=== PATIENT | male | born 1930 | race Caucasian/White ===

== ENCOUNTER → 2016-09-24 | Day surgery (SDC) | payer MEDICARE, OTHER ==
[~2016-09-24] VITALS: Ht 170.2 cm; Wt 59.0 kg
[~2016-09-24] MED LIST: ACET65TA OR; AMBI10TA PO; AMBI5TAB PO; BALANCED SALT IRRIGATION SOLUTION 500ML BAG (FOR OR EYE MACHINE) As Ordered ONE; COMB0.2S OU; COUM2.5T17 PO; CYCLOPENTOLATE 2% OPHTH SOLN 2ML BTL As Ordered ONE; CYCLOPENTOLATE 2% OPHTH SOLN 2ML BTL OD ONE; DECLOMYCIN; DEME150T PO; DEME150T2 PO; DORZ2SOL5 OU; FERR325T PO; FLEEENE4 PR; HEALON DUET (HEALON 10MG/ML 0.55ML & HEALON ENDOCOAT 30MG/ML 0.85ML) As Ordered ONE; LASI20TA PO; LASI40TA PO; LEVO25TA2 PO; LEVO25TA5 PO; LIDOCAINE 2% W/EPIN INJ 20ML **PRES FREE As Ordered ONE; LIDOCAINE 4% INJ 5 ML AMP OU ONE; LR 500 ML IV ONE; MELOPOW PO; METATAB PO; MIDAZOLAM INJ 2 MG/2 ML VIAL (J2250) As Ordered ONE; MILKSUS PO; MIRA3350 PO; OFLOXACIN 0.3 % (OCUFLOX) OPTH SOL 5ML As Ordered ONE; OFLOXACIN 0.3 % (OCUFLOX) OPTH SOL 5ML OD ONE; OMEP10CASR PO; PERC5TAB12 PO; PHENYLEPHRINE 2.5% OPHTH SOL 2ML As Ordered ONE; PHENYLEPHRINE 2.5% OPHTH SOL 2ML OD ONE; POVIDONE-IODINE 5% OPHTH PREP SOL 30ML As Ordered ONE; PRIL40CA OR; SENO8.6T5 PO; TOBRADEX OPHTH OINT 3.5 GM As Ordered ONE; TOBROPO OU; TROPICAMIDE 1% OPHTH SOLN 2ML As Ordered ONE; TROPICAMIDE 1% OPHTH SOLN 2ML OD ONE; TYLE325T5 PO; XALATAN; XALATAN OPTH OU; ZOFR20TA PO; fentaNYL 100 MCG/2 ML INJECTION (J3010) As Ordered ONE; mitoMYcin 0.2 MG/VIAL KIT FOR OPHTHALMIC USE (J7315 PER 0.2MG) As Ordered ONE
[2016-09-24 16:00] VITALS: BP 145/69
--- NOTE | 2016-09-25 17:10 | RO ---
DATE OF PROCEDURE: 09/24/2016 PREPROCEDURE DIAGNOSIS: Glaucoma right eye. POSTPROCEDURE DIAGNOSIS: Glaucoma right eye. PROCEDURE: Endocyclophotocoagulation and EX-PRESS shunt placement in the right eye. Version P50. SURGEON: Dr. Alda Simpson LODGE SALES ASSOCIATE: None. ANESTHESIA: COMPLICATIONS: None. PROCEDURE IN DETAIL: The patient was brought to the operating room and laid in supine position. The eye was prepped and draped in a sterile fashion for ophthalmic surgery and a lid speculum was placed. Attention was first diverted to doing the ECP. Sideport incision was made and EndoCoat was injected into the anterior chamber. Temporal clear corneal incision was made with a 2.5 mm keratome and Healon was injected into the ciliary sulcus to visualize the ciliary processes on the video screen with the help of the EndoProbe. Endocyclophotocoagulation was carried out over 280 degrees at 0.25 mV with good results seen on the screen by shrinking of the ciliary processes. After this the excess viscoelastic was aspirated and the wound was closed using #10-0 nylon suture. Attention was then diverted towards doing the EX-PRESS shunt and subconjunctival injection of 2% lidocaine with 1:100,000 epinephrine was given in superotemporal subconjunctival space because of the severe adhesions throughout the rest of the conjunctiva. After this a limbal based conjunctival incision was then made from the fornix towards the limbus. Subconjunctival dissection was done along with hemostasis as necessary. Mitomycin 0.4 mg per mL diluted to 0.2 mg on the field was then placed under the conjunctiva for about 2 minutes followed by copious irrigation with balanced salt solution. Limbal-based scleral flap was created measuring 3.5 x 4 mm and was dissection was carried all the way to the blue line. The scleral flap was elevated and anterior chamber was entered with a 27-guage needle which was withdrawn and through the same needle the EX-PRESS shunt was placed and draped over by the scleral flap and conjunctiva closed using #8-0 continuous Vicryl suture. No leaks were noted. Lid speculum was removed. Eye was patched and the patient returned to the recovery room in stable condition.
== END | disposition home or self-care (01) ==
LOC: M SDC 11:32
PROVIDERS: ATTEND Ophthalmology
DX: H40.9 Unspecified glaucoma (principal); E03.9 Hypothyroidism, unspecified; D64.9 Anemia, unspecified; M19.90 Unspecified osteoarthritis, unspecified site; N18.9 Chronic kidney disease, unspecified; Z87.891 Personal history of nicotine dependence; Z88.8 Allergy status to other drugs, medicaments and biological substances; Z79.899 Other long term (current) drug therapy
CPT/HCPCS: 66183; 66711; C1783; J2250; J3010; J7315

== ENCOUNTER 2016-10-14 06:37 | Day surgery (SDC) | payer MEDICARE, OTHER ==
[~2016-10-14] VITALS: Ht 170.2 cm; Wt 59.0 kg
[~2016-10-14 06:37] MED LIST changes: +ACETAMINOPHEN 325 MG TAB PO PRN; -BALANCED SALT IRRIGATION SOLUTION 500ML BAG (FOR OR EYE MACHINE) As Ordered ONE; +BETAMETHASONE SOLUSPAN 6MG/ML INJ 5ML (J0702) As Ordered ONE; -CYCLOPENTOLATE 2% OPHTH SOLN 2ML BTL As Ordered ONE; -CYCLOPENTOLATE 2% OPHTH SOLN 2ML BTL OD ONE; -HEALON DUET (HEALON 10MG/ML 0.55ML & HEALON ENDOCOAT 30MG/ML 0.85ML) As Ordered ONE; -LIDOCAINE 4% INJ 5 ML AMP OU ONE; -LR 500 ML IV ONE; -MIDAZOLAM INJ 2 MG/2 ML VIAL (J2250) As Ordered ONE; -OFLOXACIN 0.3 % (OCUFLOX) OPTH SOL 5ML As Ordered ONE; -OFLOXACIN 0.3 % (OCUFLOX) OPTH SOL 5ML OD ONE; -PHENYLEPHRINE 2.5% OPHTH SOL 2ML As Ordered ONE; -PHENYLEPHRINE 2.5% OPHTH SOL 2ML OD ONE; +TOBRAMYCIN INJ 80 MG/2 ML VIAL (J3260) As Ordered ONE; -TROPICAMIDE 1% OPHTH SOLN 2ML As Ordered ONE; -TROPICAMIDE 1% OPHTH SOLN 2ML OD ONE; -fentaNYL 100 MCG/2 ML INJECTION (J3010) As Ordered ONE
[2016-10-14] MEDS ORDERED: ACETYLCHOLINE OPHTH SOLN 1% 2ML (MIOCHOL-E) As Ordered ONE (06:51)
[2016-10-14] MEDS ORDERED: MIDAZOLAM INJ 2 MG/2 ML VIAL (J2250) As Ordered ONE (06:57)
[2016-10-14] MEDS ORDERED: LIDOCAINE 3.5 % 1ML OPHTH TOPICAL GEL OU ONE (07:00)
[2016-10-14] MEDS ORDERED: PHENYLEPHRINE 2.5% OPHTH SOL 2ML OS ONE (07:00)
[2016-10-14] MEDS ORDERED: CYCLOPENTOLATE 2% OPHTH SOLN 2ML BTL OS ONE (07:00)
[2016-10-14] MEDS ORDERED: OFLOXACIN 0.3 % (OCUFLOX) OPTH SOL 5ML OS ONE (07:00)
[2016-10-14] MEDS ORDERED: LIDOCAINE 1% MDV 20ML VIAL SC ONE (07:00)
[2016-10-14] MEDS ORDERED: TROPICAMIDE 1% OPHTH SOLN 2ML OS ONE (07:00)
[2016-10-14] MEDS ORDERED: BSS with VANC/TOB/EPI for EYE CASES IR ONE (07:00)
[2016-10-14] MEDS ORDERED: LR 1,000 ML IV ONE (07:00)
[2016-10-14] MEDS ORDERED: PROPARACAINE 0.5% OPHTH SOL 15ML OS PRN (07:01)
[2016-10-14] MEDS ORDERED: fentaNYL 100 MCG/2 ML INJECTION (J3010) As Ordered ONE (08:28)
[2016-10-14] MEDS ORDERED: KETOROLAC 0.5% OPHTH SOLN OS ONE (09:30)
[2016-10-14] MEDS ORDERED: TRIMETHOBENZAMIDE 300 MG CAP PO PRN (09:30)
[2016-10-14] MEDS ORDERED: AcetaZOLAMIDE 500 MG ER CAP PO ONE (09:30)
[2016-10-14 09:35] VITALS: BP 170/79
--- NOTE | 2016-11-07 14:59 | RO ---
DATE OF PROCEDURE: 10/14/2016 PREOPERATIVE DIAGNOSIS: Glaucoma left eye. POSTOPERATIVE DIAGNOSIS: Glaucoma left eye. PROCEDURE: Placement of the ExPRESS shunt and endocyclophotocoagulation in the left eyes. SURGEON: Alda Simpson MD HOLLOW WARE MAKER: None. COMPLICATIONS: None. PROCEDURE IN DETAIL: Patient was brought to the operating room and laid in supine position. The eye was prepped and draped in a sterile fashion for ophthalmic surgery and a lid speculum was placed. A conjunctival peritomy was done which was limbal based between 4 and 6 o'clock hours. Hemostasis was obtained as necessary, following which mitomycin 0.3 mg/mL was then placed on the scleral bed followed by copious irrigation with balance salt solution (BSS). A limbal based scleral flap was created 4 mm x [address] to the blue line. The flap was lifted and the anterior chamber was entered using a 27 gauge needle, which was subsequently retracted. Through the same tract, the ExPRESS shunt was then placed and it was draped over by the scleral flap. The conjunctiva was closed using #8-0 Vicryl sutures. No leaks were noted. A temporal clear corneal incision was made with a 2.5 mm keratome. Healon was injected into the anterior chamber and the ciliary sulcus. We visualized the ciliary processes on the video screen with the help of the EndoProbe. Endocyclophotocoagulation (ECP) was done 280 degrees at 0.25 milliwatts. Good results were noted by the shrinking of the ciliary processes. Excess viscoelastic was then aspirated. The wound was hydrated. #10-0 nylon suture was applied. No leaks were noted. Lid speculum was removed. TobraDex ointment was applied and the patient was returned to the recovery room in stable condition.
== END 2016-10-14 09:50 | disposition home or self-care (01) ==
LOC: M SDC 06:37
PROVIDERS: ATTEND Ophthalmology
DX: H40.9 Unspecified glaucoma (principal); E03.9 Hypothyroidism, unspecified; D64.9 Anemia, unspecified; M19.90 Unspecified osteoarthritis, unspecified site; N18.9 Chronic kidney disease, unspecified; E55.9 Vitamin D deficiency, unspecified; F33.1 Major depressive disorder, recurrent, moderate; K25.4 Chronic or unspecified gastric ulcer with hemorrhage; D69.3 Immune thrombocytopenic purpura; M25.519 Pain in unspecified shoulder; Z85.048 Personal history of other malignant neoplasm of rectum, rectosigmoid junction, and anus; G47.00 Insomnia, unspecified; M26.609 Unspecified temporomandibular joint disorder, unspecified side; Z87.891 Personal history of nicotine dependence; Z88.8 Allergy status to other drugs, medicaments and biological substances; Z79.899 Other long term (current) drug therapy
CPT/HCPCS: 66183; 66711; C1783; J2250; J3010; J7315

== ENCOUNTER → 2017-05-13 | Outpatient (REF) | payer MEDICARE, OTHER ==
[2017-05-13 15:08] LABS: FERRITIN 121 NG/ML (26-388); IRON (FE) 84 UG/DL (65-175); PERCENT SATURATION 30.8 % (19.7-50.0); TOTAL IRON BINDING CAPACITY 273 UG/DL (250-450)
[2017-05-13 15:16] LABS: FOLATE 21.4 NG/ML; VITAMIN B12 LEVEL 277 PG/ML
== END ==
LOC: M LAB REF 13:24
DX: D64.9 Anemia, unspecified (principal)
CPT/HCPCS: 82746

== ENCOUNTER → 2017-11-13 | Outpatient (REF) | payer MEDICARE, OTHER ==
[2017-11-13 20:38] LABS: FERRITIN 110 NG/ML (26-388); IRON (FE) 90 UG/DL (65-175); TOTAL IRON BINDING CAPACITY 269 UG/DL (250-450)
[2017-11-13 20:43] LABS: FOLATE 21.5 NG/ML
[2017-11-13 21:03] LABS: PERCENT SATURATION 33.5 % (19.7-50.0)
== END ==
LOC: M LAB REF 18:49
DX: D64.9 Anemia, unspecified (principal)
CPT/HCPCS: 82746

== ENCOUNTER → 2019-03-23 | Outpatient (REF) | payer MEDICARE, OTHER ==
[~2019-03-23] MED LIST changes: -ACETAMINOPHEN 325 MG TAB PO PRN; -BETAMETHASONE SOLUSPAN 6MG/ML INJ 5ML (J0702) As Ordered ONE; -LASI20TA PO; +LASI20TA3 PO; +LASI40TA9 PO; -LIDOCAINE 2% W/EPIN INJ 20ML **PRES FREE As Ordered ONE; +MILK120011 PO; -MILKSUS PO; -POVIDONE-IODINE 5% OPHTH PREP SOL 30ML As Ordered ONE; -TOBRADEX OPHTH OINT 3.5 GM As Ordered ONE; -TOBRAMYCIN INJ 80 MG/2 ML VIAL (J3260) As Ordered ONE; -ZOFR20TA PO; +ZOFR4TAB16 PO; -mitoMYcin 0.2 MG/VIAL KIT FOR OPHTHALMIC USE (J7315 PER 0.2MG) As Ordered ONE
[2019-03-23 20:06] LABS: ALBUMIN 3.5 GM/DL (3.2-5.2); BILIRUBIN,DIRECT 0.1 MG/DL (0.0-0.2); BILIRUBIN,TOTAL 0.4 MG/DL (0.2-1.0)
== END ==
LOC: M LAB REF 16:58
PROVIDERS: ATTEND Nurse Practitioner Family
DX: D64.9 Anemia, unspecified (principal); R63.4 Abnormal weight loss

== ENCOUNTER → 2019-07-22 | Outpatient (REF) | payer MEDICARE, OTHER ==
[~2019-07-22] MED LIST changes: -DEME150T2 PO; +DEME1TAB2 PO
[2019-07-22 17:50] LABS: PERCENT SATURATION 21.2 % (19.7-50.0)
== END ==
LOC: M LAB REF 16:41
PROVIDERS: ATTEND Nurse Practitioner Family
DX: D50.9 Iron deficiency anemia, unspecified (principal)

== ENCOUNTER → 2019-11-23 | Outpatient (REF) | payer MEDICARE, OTHER ==
[2019-11-23 17:48] LABS: PERCENT SATURATION 17.4 % (19.7-50.0)
== END ==
LOC: M LAB REF 17:16
PROVIDERS: ATTEND Nurse Practitioner Family
DX: D50.9 Iron deficiency anemia, unspecified (principal)

== ENCOUNTER → 2021-01-30 | Outpatient (REF) | payer MEDICARE, OTHER ==
[2021-01-30 14:56] LABS: APPEARANCE, URINE CLEAR (CLEAR); BACTERIA, URINE AUTO NEGATIVE (NEGATIVE); BILIRUBIN, URINE AUTO NEGATIVE (NEGATIVE); BLOOD, URINE BLOOD NEGATIVE (NEGATIVE); COLOR, URINE YELLOW (YELLOW); GLUCOSE, URINE (UA) AUTO NEGATIVE (NEGATIVE); KETONE, URINE AUTO NEGATIVE (NEGATIVE); LEUKOCYTE ESTERASE, URINE AUTO NEGATIVE (NEGATIVE); NITRITE, URINE AUTO NEGATIVE (NEGATIVE); PROTEIN, URINE AUTO NEGATIVE (NEGATIVE); RBC, URINE AUTO 0 /HPF (0-3); SPECIFIC GRAVITY URINE AUTO 1.013 (1.002-1.035); SQUAMOUS EPITHELIAL CELL UR AU 0 /HPF (0-6); UROBILINOGEN, URINE AUTO 0.2 mg/dL (0.0-2.0); WBC, URINE AUTO 0 /HPF (0-3)
== END ==
LOC: M LAB REF 14:36
PROVIDERS: ATTEND Family Medicine
DX: N39.0 Urinary tract infection, site not specified (principal)

== ENCOUNTER → 2021-07-31 | Outpatient (REF) | payer MEDICARE, OTHER ==
[2021-07-31 17:44] LABS: PERCENT SATURATION 13.4 % (19.7-50.0)
== END ==
LOC: M LAB REF 16:40
PROVIDERS: ATTEND Nurse Practitioner Family
DX: D50.9 Iron deficiency anemia, unspecified (principal)